=== PATIENT | female | born 1950 | race Two or more races ===

== ENCOUNTER 2020-08-31 03:19 | Emergency (ER) | payer OTHER ==
[~2020-08-31] VITALS: Ht 154.9 cm; Wt 59.0 kg
[2020-08-31] MEDS ORDERED: ATACAND16 MG (03:36)
[2020-08-31] MEDS ORDERED: TOPROL XL25 M1 (03:37)
[2020-08-31] MEDS ORDERED: LOXAPINE50 MG PO (03:38)
[2020-08-31] MEDS ORDERED: SYNTHROID112 MCG (03:39)
[2020-08-31] MEDS ORDERED: ELIQUIS5 MG PO (12:13)
== END 2020-08-31 12:40 | disposition home or self-care (01) ==
LOC: ER 03:19
DX: R00.2 Palpitations (principal); I48.91 Unspecified atrial fibrillation; I49.8 Other specified cardiac arrhythmias